=== PATIENT | female | born 2000 | race Caucasian/White ===

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

== ENCOUNTER → 2021-01-08 | Emergency (ER) | payer MEDICAID ==
[~2021-01-08] VITALS: Ht 160 cm; Wt 60.9 kg
[~2021-01-08] MED LIST: CEPHALEXIN500 M1 PO; DIFLUCAN150 MG PO; NAPROSYN500 MG PO; ULTRAM50 MG PO
[2021-01-08 20:07] VITALS: BP 113/68; Ht 160 cm; Wt 60.9 kg
[2021-01-08 21:22] LABS: BILIRUBIN NEGATIVE (NEGATIVE); KETONE NEGATIVE (NEGATIVE); NITRITE POSITIVE (NEGATIVE); UROBILINOGEN NORMAL mg/dL (< 2)
[2021-01-08 21:23] LABS: BACTERIA MANY HPF (NONE SEEN); SQUAMOUS EPITHELIAL 0-5 HPF (0-4)
[2021-01-10 17:08] LABS: CHLAMYDIA TRACHOMATIS, NAA Positive (Negative)
== END | disposition home or self-care (01) ==
LOC: D.ER 20:01
PROVIDERS: Family Medicine
DX: L03.314 Cellulitis of groin (principal); R10.2 Pelvic and perineal pain; R59.1 Generalized enlarged lymph nodes

== ENCOUNTER 2021-01-09 03:14 | Emergency (ER) | payer MEDICAID ==
[~2021-01-09] VITALS: Ht 160 cm; Wt 60.9 kg
[~2021-01-09 03:14] MED LIST changes: -ULTRAM50 MG PO
[2021-01-09 03:22] VITALS: Ht 160 cm; Wt 60.9 kg
[2021-01-09] MEDS ORDERED: ULTRAM50 MG PO (04:30)
[2021-01-09 04:37] VITALS: BP 101/64
== END 2021-01-09 04:36 | disposition home or self-care (01) ==
LOC: D.ER 03:14
DX: N39.0 Urinary tract infection, site not specified (principal); R10.2 Pelvic and perineal pain

== ENCOUNTER 2021-01-13 10:56 | Emergency (ER) | payer MEDICAID ==
[~2021-01-13] VITALS: Ht 160 cm; Wt 60.9 kg
[~2021-01-13 10:56] MED LIST changes: +ULTRAM50 MG PO
[2021-01-13 10:59] VITALS: BP 104/70
[2021-01-13 11:20] LABS: HCG URINE NEGATIVE (NEGATIVE)
== END 2021-01-13 11:25 | disposition home or self-care (01) ==
LOC: D.ER 10:56
PROVIDERS: Family Medicine
DX: A74.9 Chlamydial infection, unspecified (principal); Z20.2 Contact with and (suspected) exposure to infections with a predominantly sexual mode of transmission